=== PATIENT | male | born 1985 | race Caucasian/White ===

== ENCOUNTER 2017-11-04 07:48 | Emergency (ER) | payer BC ==
--- NOTE | 2017-11-04 08:17 | UC ---
HPI Febrile Illness - HPI Summary HPI Summary: 32 year old with flu like sx. c/o chest congestion, cough, and lethargy for a couple days. States girlfriend diagnosed with FLU A yesterday. [ End ] - History of Current Complaint Time Seen by Provider: 11/04/17 08:12 Hx Obtained From: Patient Timing: Constant Associated Signs and Symptoms: Joint Pain, Myalgia, Weakness - Allergy/Home Medications Allergies/Adverse Reactions: Allergies Allergy/AdvReac Type Severity Reaction Status Date / Time No Known Allergies Allergy Verified 11/04/17 08:22 Home Medications: Home Medications Cholecalciferol TAB* [Vitamin D TAB*] 1,000 unit PO DAILY 11/04/17 [History Confirmed 11/04/17] Milk Thistle (Silybum Marianum [Milk Thistle] 200 mg PO DAILY 11/04/17 [History Confirmed 11/04/17] PMH/Surg Hx/FS Hx/Imm Hx Previously Healthy: Yes - Surgical History Surgical History: None - Family History Known Family History: Positive: None - Social History Occupation: Employed Full-time Lives: With Family Alcohol Use: Occasionally Substance Use Type: None Smoking Status (MU): Heavy Every Day Tobacco Smoker - Immunization History Most Recent Tetanus Shot: unknown Review of Systems Constitutional: Chills, Fatigue ENT: Sore Throat, Nasal Discharge, Sinus Congestion Respiratory: Cough Musculoskeletal: Myalgia Is Patient Immunocompromised?: No All Other Systems Reviewed And Are Negative: Yes Physical Exam Triage Information Reviewed: Yes Appearance: Well-Appearing, No Pain Distress, Well-Nourished Vital Signs Reviewed: Yes Eye Exam: Normal ENT Exam: Normal Dental Exam: Normal Neck exam: Normal Neck: Positive: 1 Respiratory Exam: Normal Cardiovascular Exam: Normal Musculoskeletal Exam: Normal Neurological Exam: Normal Psychological Exam: Normal Skin Exam: Normal Course/Dx - Course Course Of Treatment: neg flu. no acute concerns. supportive treatment - Diagnoses Clinic Provider Diagnoses: URI Discharge - Discharge Plan Condition: Good Disposition: HOME Patient Education Materials: Upper Respiratory Infection (ED) Referrals: Fer Bennett MD [Primary Care Provider] - 4 Days Additional Instructions: You had a negative flu test today
[2017-11-04 08:22] VITALS: BP 145/88
== END 2017-11-04 08:48 | disposition home or self-care (01) ==
LOC: UCCORT 07:48
DX: J06.9 Acute upper respiratory infection, unspecified (principal); F17.210 Nicotine dependence, cigarettes, uncomplicated
CPT/HCPCS: 87502; 99211; G0463